=== PATIENT | female | born 1960 | race Caucasian/White ===

== ENCOUNTER 2016-06-25 14:03 | Emergency (ER) ==
[~2016-06-25 14:03] MED LIST: ASPIRIN PO STA; BENADRYL IV ONE; NITROGLYCERIN SL PRN
[2016-06-25 14:26] LABS: MANUAL DIFF NEEDED? NO
[2016-06-25 14:31] LABS: BASO% 0.2 % (0.0-0.8); EOS# 0.01 X1000 (0.0-0.7); EOS% 0.1 % (0.0-10.0); HEMATOCRIT 39.4 % (37.0-47.0); HEMOGLOBIN 13.9 g/dL (12.0-16.0); IMM GRAN# 0.06 X1000 (0.0-0.04); IMM GRAN% 0.6 % (0.0-0.5); LYMPH# 2.92 X1000 (1.2-3.4); LYMPH% 29.7 % (20.5-51.1); MCHC 35.3 g/dL (33-37); MCV 84.9 FL (81-99); MONO# 0.75 X1000 (0.11-0.59); MONO% 7.6 % (1.7-9.3); MPV 11.4 FL (7.4-10.4); NEUT% 61.8 % (42.2-75.2); PLT 306 X1000 (130-400); RBC 4.64 XMIL (4.2-5.4)
--- NOTE | 2016-06-25 14:43 | ED EKG INTERP ---
EKG Interpretation - EKG Time of EKG reading by physician:: 14:33 EKG Read and Signed by:: Katie Lopez EKG Interpretation (*Must complete 3 of following elements*): Normal Rate: 77 Rhythm: NSR Attestation - Scribe Verification/Attestation Scribe:: Piedad Gay Acting as Scribe for:: Katie Lopez Scribe documention review:: This chart was documented by a scribe and accurately reflects the service the provider performed and the decisions made by the provider.
[2016-06-25 14:45] LABS: INR 0.95; PROTIME 9.7 Seconds (9.2-11.7)
[2016-06-25 14:50] LABS: AGAP 20; ALBUMIN 4.1 g/dL (3.5-5.0); ALKALINE PHOSPHATASE 92 U/L (32-104); BUN 10 mg/dL (8-22); CHLORIDE 92 mmol/L (98-107); CK PROFILE 68 U/L (24-173); COSMO 277; GOT 14 U/L (10-30); GPT 33 U/L (10-36); MAGNESIUM 1.6 mg/dL (1.5-2.7); SODIUM 136 mmol/L (136-145); TCO2 24 mmol/L (25-35); TOTAL BILIRUBIN 0.26 mg/dL (0.20-1.00); TOTAL PROTEIN 6.9 g/dL (6.3-8.3)
[2016-06-25] MEDS ORDERED: KLOR-CON PO ONE (15:25)
--- NOTE | 2016-06-25 16:17 | PROVIDER DOCUMENTATION ---
HPI-General Adult - General Chief Complaint: Allergic Reaction Stated Complaint: GENERAL ADULT ILLNESS Time Seen by Provider: 06/25/16 14:05 Source: patient Allergies/Adverse Reactions: Patient Allergies Allergy/AdvReac Type Severity Reaction Status Date / Time penicillin G Allergy Severe SWELLING Verified 06/25/16 14:40 morphine Allergy Unknown NAUSEA/VOMI Verified 06/25/16 14:40 TING cephalexin [Cephalexin] Allergy SWELLING Verified 06/25/16 14:40 diazepam [From Valium] Allergy DIZZINESS Verified 06/25/16 14:40 prednisone Allergy SHORTNESS Verified 06/25/16 14:40 OF BREATH Home Medications: Home Medication List Medication Instructions Recorded Confirmed Last Taken Type Albuterol Sulfate Inhaler 2 mcg INH BID PRN 04/26/12 06/25/16 01/29/15 08:00 History [Ventolin Hfa] Diltiazem HCl [Matzim LA] 360 mg PO DAILY 04/26/12 06/25/16 06/25/16 08:00 History Fluticasone/Salmet 250/50 INH 1 puff INH DAILY 04/26/12 06/25/16 06/24/16 16:00 History [Advair 250/50 Diskus] Gabapentin [Neurontin] 300 mg PO TID PRN 04/26/12 06/25/16 01/30/15 08:45 History Potassium Chloride 20 meq PO BID 04/26/12 06/25/16 06/24/16 16:00 History Promethazine [Phenergan] 25 mg PO TID PRN 04/26/12 06/25/16 Unknown History Tramadol [Ultram] 50 mg PO TID PRN 04/26/12 06/25/16 01/28/15 22:30 History Triamterene/Hctz [Maxzide 75/50] 1 each PO DAILY 04/26/12 06/25/16 06/25/16 08: 00 History Montelukast Sodium [Singulair] 10 mg PO DAILY 01/30/15 06/25/16 06/24/16 16:00 History Clarithromycin [Biaxin] 250 mg PO BID 06/25/16 06/25/16 06/24/16 08:00 History Methylprednisolone [Medrol Dosepak] 4 mg PO DIRECTED 06/25/16 06/25/16 17:00 History - History of Present Illness -Gen Adult Nature of Presenting Problems: This pt presents today c complaints of possible allergic reaction. She reports that she was started on Biaxin and a Medrol dose pack for a URI. She reports that this made her heart race and chest feel tight. She called her PCP and was switched to Levaquin. I noticed in her hx that she was also allergic to prednisone and she said "yes, it makes my chest tight." The pt did not realize that a medrol dose pack was prednisone. No other issues or complaints. Location of Pain/Injury: reports: chest Quality of Pain: reports: tightness Severity: reports: moderate Onset/Duration: reports: 2 days ago Timing: reports: still present Similar Symptoms Previously?: Yes Recently seen or treated by another doctor?: Yes Review of Systems - Adult - REVIEW OF SYSTEMS - ADULT Constitutional: reports: no symptoms reported. denies: chills, fever Eyes: reports: no symptoms reported. denies: discharge, dry eyes Ears, Nose, Mouth & Throat: reports: no symptoms reported. denies: ear discharge, ear pain Cardiovascular: reports: chest pain, palpitations. denies: irregular heart rate , orthopnea Respiratory: reports: no symptoms reported. denies: chronic cough, cough Gastrointestinal: reports: no symptoms reported. denies: abdominal pain, hematemesis Genitourinary: reports: no symptoms reported. denies: dysuria, discharge Musculoskeletal: reports: no symptoms reported. denies: bone pain, back pain Integumentary: reports: no symptoms reported. denies: hives, hair loss Neurological: reports: no symptoms reported. denies: ataxia, dizziness/vertigo Psychiatric: reports: no symptoms reported. denies: anxiety, anti-depressant use Endocrine: reports: no symptoms reported Hematologic/Lymphatic: reports: no symptoms reported Allergic/Immunologic: reports: no symptoms reported All Other Systems: Reviewed and Negative Past History - Adult - PAST MEDICAL HISTORY-ADULT Review of Records: reports: Old Records Reviewed, Nursing Assessment Review, Medications Reviewed, Social history reviewed & non-contributory. Major Childhood Illnesses: reports: denies history Cardiovascular: reports: denies history Respiratory: reports: denies history Gastrointestinal: reports: denies history Obstetrical/Gynecological: reports: denies history Genitourinary: reports: denies history Musculoskeletal: reports: denies history Neurological: reports: denies history Endocrine/Immune: reports: denies history Other Conditions: reports: denies history Physical Exam-General - PHYSICAL EXAM-ADULT Initial Vital Signs Reviewed: Yes - CONSTITUTIONAL General Appearance: appears well, alert, no apparent distress - EYES Eyes: PERRL/EOMI, pink conjunctivae - HEAD, EARS, NOSE, MOUTH & THROAT HENMT: normocephalic/atraumatic, moist mucous membranes, normal ENT inspection - NECK Neck: non-tender, full range of motion, supple, normal inspection - RESPIRATORY Respiratory: chest non-tender, lungs clear, normal breath sounds, no pleuratic chest pain, no respiratory distress, no accessory muscle use - CARDIOVASCULAR Cardiovascular: normal peripheral pulses, regular rate, rhythm, no edema, no gallop, no JVD, no murmur - GASTROINTESTINAL (ABDOMEN) Abdominal Exam: normal bowel sounds, non tender, soft, no organomegaly, no pulsatile mass - MUSCULOSKELETAL Back Exam: normal inspection, no CVA tenderness, no vertebral tenderness Extremity: normal range of motion, non-tender, normal gait, normal inspection - SKIN Integumentary: normal color, normal turgor, warm/dry - NEUROLOGIC Neurologic: grossly normal, no motor/sensory deficits - PSYCHIATRIC Psych/Mental Status: normal mood/affect, normal thought content, normal thought process, oriented x 3 Progress - PLAN OF CARE/RESULTS Progress/Plan/Lab Results: Laboratory Tests 06/25/16 06/25/16 06/25/16 14:10 14:10 14:10 WBC 9.83 RBC 4.64 Hgb 13.9 Hct 39.4 MCV 84.9 MCH 30.0 MCHC 35.3 RDW Std Deviation 12.8 Plt Count 306 MPV 11.4 H Immature Gran % (Auto) 0.6 H Neut % (Auto) 61.8 Lymph % (Auto) 29.7 Barbour % (Auto) 7.6 Eos % (Auto) 0.1 Baso % (Auto) 0.2 Immature Gran # (Auto) 0.06 H Neut # (Auto) 6.07 Lymph # (Auto) 2.92 Barbour # (Auto) 0.75 H Eos # (Auto) 0.01 Baso # (Auto) 0.02 PT INR PTT (Actin FS) D-Dimer 0.37 Sodium 136 Potassium 3.0 L Chloride 92 L Carbon Dioxide 24 L Anion Gap 20 BUN 10 Creatinine 0.6 Estimated GFR/1.73 m2 > 60 BUN/Creatinine Ratio 17 Glucose 204 H Calculated Osmolality 277 Calcium 10.0 Magnesium 1.6 Total Bilirubin 0.26 AST 14 ALT 33 Alkaline Phosphatase 92 Creatine Kinase 68 Troponin T Zkt-[id number]-Npyqmiukmas Pept Total Protein 6.9 Albumin 4.1 Globulin 2.8 Albumin/Globulin Ratio 1.5 06/25/16 06/25/16 06/25/16 14:10 14:10 14:10 WBC RBC Hgb Hct MCV MCH MCHC RDW Std Deviation Plt Count MPV Immature Gran % (Auto) Neut % (Auto) Lymph % (Auto) Barbour % (Auto) Eos % (Auto) Baso % (Auto) Immature Gran # (Auto) Neut # (Auto) Lymph # (Auto) Barbour # (Auto) Eos # (Auto) Baso # (Auto) PT 9.7 INR 0.95 PTT (Actin FS) 25.0 D-Dimer Sodium Potassium Chloride Carbon Dioxide Anion Gap BUN Creatinine Estimated GFR/1.73 m2 BUN/Creatinine Ratio Glucose Calculated Osmolality Calcium Magnesium Total Bilirubin AST ALT Alkaline Phosphatase Creatine Kinase Troponin T < 0.010 Unb-N-Kwftkynwlun Pept 71 Total Protein Albumin Globulin Albumin/Globulin Ratio Orders Category Date Time Status Cardiac Monitoring DIRECTED Care 06/25/16 13:36 Active Saline Loc NOW Care 06/25/16 13:36 Active CHEST-2 VIEWS [RAD] Stat Exams 06/25/16 13:36 Taken CBC WITH ELECTRONIC DIFF [HEME] Stat Lab 06/25/16 14:10 Completed CK PROFILE [SP CHEM] Stat Lab 06/25/16 14:10 Completed CK PROFILE [SP CHEM] Stat Lab 06/25/16 16:06 Ordered COMPREHENSIVE METABOLIC PANEL [CHEM] Stat Lab 06/25/16 14:10 Completed D-DIMER [CHEM] Stat Lab 06/25/16 14:10 Completed MAGNESIUM [CHEM] Stat Lab 06/25/16 14:10 Completed PRO B-NATRIURETIC PEPTIDE Stat Lab 06/25/16 14:10 Completed PROTIME WITH INR [COAG] Stat Lab 06/25/16 14:10 Completed PTT [COAG] Stat Lab 06/25/16 14:10 Completed TROPONIN T Stat Lab 06/25/16 14:10 Completed TROPONIN T Stat Lab 06/25/16 16:06 Ordered Aspirin Med 06/25/16 13:36 Discontinued 325 mg PO STAT STA Diphenhydramine [Benadryl] Med 06/25/16 13:55 Discontinued 25 mg IV NOW ONE Nitroglycerin Sl [Nitroglycerin] Med 06/25/16 13:36 Active 0.4 mg SL Q5M PRN PRN Potassium Chloride E.r. [Klor-Con] Med 06/25/16 15:25 Discontinued 40 meq PO NOW ONE EKG [EKG] Stat Ther 06/25/16 13:36 Ordered EKG [EKG] Stat Ther 06/25/16 15:25 Ordered Vital Signs Temp Pulse Resp BP Pulse Ox 06/25/16 16:09 98.9 F 100 H 28 H 178/94 98 penicillin G Allergy (Severe, Verified 06/25/16 14:40) SWELLING morphine Allergy (Unknown, Verified 06/25/16 14:40) NAUSEA/VOMITING cephalexin [Cephalexin] Allergy (Verified 06/25/16 14:40) SWELLING diazepam [From Valium] Allergy (Verified 06/25/16 14:40) DIZZINESS heart racing , keeps awake prednisone Allergy (Verified 06/25/16 14:40) SHORTNESS OF BREATH increase heart rate Albuterol Sulfate Inhaler [Ventolin Hfa] 2 mcg INH BID PRN 04/26/12 Diltiazem HCl [Matzim LA] 360 mg PO DAILY 04/26/12 Fluticasone/Salmet 250/50 INH [Advair 250/50 Diskus] 1 puff INH DAILY 04/26/12 Gabapentin [Neurontin] 300 mg PO TID PRN 04/26/12 Potassium Chloride 20 meq PO BID 04/26/12 Promethazine [Phenergan] 25 mg PO TID PRN 04/26/12 Tramadol [Ultram] 50 mg PO TID PRN 04/26/12 Triamterene/Hctz [Maxzide 75/50] 1 each PO DAILY 04/26/12 Montelukast Sodium [Singulair] 10 mg PO DAILY 01/30/15 Clarithromycin [Biaxin] 250 mg PO BID 06/25/16 Methylprednisolone [Medrol Dosepak] 4 mg PO DIRECTED 06/25/16 Laboratory 06/25/16 06/25/16 06/25/16 14:10 14:10 14:10 WBC RBC Hgb Hct MCV MCH MCHC RDW Std Deviation Plt Count MPV Immature Gran % (Auto) Neut % (Auto) Lymph % (Auto) Barbour % (Auto) Eos % (Auto) Baso % (Auto) Immature Gran # (Auto) Neut # (Auto) Lymph # (Auto) Barbour # (Auto) Eos # (Auto) Baso # (Auto) PT 9.7 INR 0.95 PTT (Actin FS) 25.0 D-Dimer Sodium Potassium Chloride Carbon Dioxide Anion Gap BUN Creatinine Estimated GFR/1.73 m2 BUN/Creatinine Ratio Glucose Calculated Osmolality Calcium Magnesium Total Bilirubin AST ALT Alkaline Phosphatase Creatine Kinase Troponin T < 0.010 Yrp-[id number]-Dsdxvlslmgl Pept 71 Total Protein Albumin Globulin Albumin/Globulin Ratio 06/25/16 06/25/16 06/25/16 14:10 14:10 14:10 WBC 9.83 RBC 4.64 Hgb 13.9 Hct 39.4 MCV 84.9 MCH 30.0 MCHC 35.3 RDW Std Deviation 12.8 Plt Count 306 MPV 11.4 H Immature Gran % (Auto) 0.6 H Neut % (Auto) 61.8 Lymph % (Auto) 29.7 Barbour % (Auto) 7.6 Eos % (Auto) 0.1 Baso % (Auto) 0.2 Immature Gran # (Auto) 0.06 H Neut # (Auto) 6.07 Lymph # (Auto) 2.92 Barbour # (Auto) 0.75 H Eos # (Auto) 0.01 Baso # (Auto) 0.02 PT INR PTT (Actin FS) D-Dimer 0.37 Sodium 136 Potassium 3.0 L Chloride 92 L Carbon Dioxide 24 L Anion Gap 20 BUN 10 Creatinine 0.6 Estimated GFR/1.73 m2 > 60 BUN/Creatinine Ratio 17 Glucose 204 H Calculated Osmolality 277 Calcium 10.0 Magnesium 1.6 Total Bilirubin 0.26 AST 14 ALT 33 Alkaline Phosphatase 92 Creatine Kinase 68 Troponin T Izk-A-Atkbmlpjhey Pept Total Protein 6.9 Albumin 4.1 Globulin 2.8 Albumin/Globulin Ratio 1.5 Pt is significantly improved after benadryl. She is requesting to go home. She has an appointment this month for a routine cardiology check. Will d/c home. Departure - Departure Time of Disposition Order: 16:16 DIAGNOSIS: Medication reaction, Palpitations Disposition: HOME 01 Certified Medical Emergency: Urgent Condition: Good Additional Instructions: Follow up with your primary care provider and cardiology as scheduled. ED Follow Up Instructions: You have been treated by a care provider in the Emergency Department. These instructions are being provided to you so you can have an understanding of how to care for yourself upon discharge. Upon discharge from the Emergency Department, you are responsible for making arrangements for follow-up care by a physician of your choice. Take all prescribed medications as directed. Return to the Emergency Department immediately for any new or worsening symptoms. You may call the Physician Referral phone number at [phone] to obtain a list of Physicians who are taking new patients. Attestation - Physician/ OUSMANE Attestation Patient care was provided by Advanced Practice Provider:: Yes Advanced Practice Provider:: Moe Weiss Advanced Practice Provider documentation review:: The Mid-level provider documentation, treatment plan and medical decision making was reviewed by the physician who agrees with all treatment and medical decision making by the MLP.
[2016-06-25 16:22] VITALS: BP 134/80
--- NOTE | 2016-06-25 17:41 | Diag Imaging Result Document ---
PROCEDURE NAME: CHEST-2 VIEWS - 06/25/2016 CHEST, 2 VIEWS: FINDINGS: Compared with 01/29/2015. Heart size is normal. There are apparent mild emphysematous changes. There is a left lower lobe granuloma from old granulomatous disease which is stable. There are no acute changes identified. There is no consolidation, pleural effusion, or pneumothorax identified. IMPRESSION: Mild emphysematous changes. No acute changes.
--- NOTE | 2016-06-25 17:44 | ED EKG INTERP ---
EKG Interpretation - EKG Time of EKG reading by physician:: 15:36 EKG Read and Signed by:: Yeimi Ochoa EKG Interpretation (*Must complete 3 of following elements*): Abnormal Rate: 70 (prolonged QT ) Rhythm: NSR Attestation - Scribe Verification/Attestation Scribe:: Piedad Gay Acting as Scribe for:: Yeimi Ochoa Scribe documention review:: This chart was documented by a scribe and accurately reflects the service the provider performed and the decisions made by the provider.
--- NOTE | 2016-06-27 10:01 | EKG Report ---
Test Performed on : 06/25/2016 2:33:22 PM Test Reason : Chest Pain Blood Pressure : / mmHG Vent. Rate : 077 BPM Atrial Rate : 077 BPM P-R Int : 134 ms QRS Dur : 080 ms QT Int : 402 ms P-R-T Axes : 043 066 041 degrees QTc Int : 454 ms Normal sinus rhythm. Normal ECG When compared with ECG of 25-JUN-2016 14:30, (Unconfirmed) No significant change was found Unconfirmed Result
--- NOTE | 2016-06-27 10:07 | EKG Report ---
Test Performed on : 06/25/2016 3:36:27 PM Test Reason : repeat Blood Pressure : / mmHG Vent. Rate : 070 BPM Atrial Rate : 070 BPM P-R Int : 142 ms QRS Dur : 076 ms QT Int : 450 ms P-R-T Axes : 026 065 045 degrees QTc Int : 486 ms Normal sinus rhythm. Prolonged QT Abnormal ECG When compared with ECG of 25-JUN-2016 14:33, (Unconfirmed) No significant change was found Unconfirmed Result
== END 2016-06-25 16:25 | disposition home or self-care (01) ==
LOC: EDBD → ED 14:03
DX: T50.905A Adverse effect of unspecified drugs, medicaments and biological substances, initial encounter (principal); R00.2 Palpitations; R07.9 Chest pain, unspecified; R94.31 Abnormal electrocardiogram [ECG] [EKG]; Z79.899 Other long term (current) drug therapy; Z79.51 Long term (current) use of inhaled steroids
CPT/HCPCS: 71020; 80053; 82550; 83735; 83880; 84484; 85025; 85379; 85610; 85730; 93005; J1200